=== PATIENT | male | born 1945 | race Caucasian/White ===

== ENCOUNTER 2025-04-19 15:39 | Emergency (ER) | payer MEDICARE, SELFPAY ==
--- NOTE | ~2025-04-19 | XR_ITS ---
XR finger 4th LT min 2V Ordering provider: Inderjit Braswell MD History: . ring finger dislocation vs fracture . Comparison: None. FINDINGS: BONES: No acute fracture. Dislocation is seen in the proximal interphalangeal joint of the left fourt h finger.. SOFT TISSUES: Normal. IMPRESSION: No fractures seen. Dislocation in the proximal interphalangeal joint of the left ring finger. Reviewed, dictated and finalized at location A.
[2025-04-19 15:48] VITALS: BP 148/88; PULSE 71; RESP 16; TEMP 36.6; O2SAT 97
[2025-04-19 20:50] VITALS: BP 142/86; PULSE 68; RESP 18; O2SAT 99
--- NOTE | 2025-04-19 21:02 | ED_ITS ---
HPI - Extremity Injury (Upper) General Chief Complaint: Extremity Injury, Upper Stated Complaint: Inj to left ring finger-fall-+deformity Time Seen by Provider: 04/19/25 20:39 History of Present Illness HPI narrative: 79-year-old male presenting to the emergency department after a mechanical fall while doing yd work he landed onto his left ring finger and feels like his deformed. Denies any pain at this time. No head trauma. No blood thinner use. Was otherwise in his normal state of health. Good range of motion other than the distal part of his left ring finger, no significant swelling. Related Data Home Medications ?Medication ?Instructions ?Recorded ?Confirmed ?Last Taken ?Type alfuzosin 10 mg tablet,extended 10 mg PO DAILY 08/31/23 09/14/23 Unknown History release 24 hr aspirin 81 mg tablet,delayed 81 mg PO 3XW 08/31/23 09/14/23 Unknown History release betamethasone dipropionate 0.05 % 1 applic topical DAILY PRN 08/31/23 09/14/23 Unknown History lotion evolocumab 140 mg/mL subcutaneous 140 mg subcut .2XM 08/31/23 09/14/23 Unknown History pen injector (Leander Patel) famotidine 20 mg tablet 20 mg PO DAILY PRN 08/31/23 09/14/23 Unknown History fluticasone propionate 50 2 spray intranasal DAILY PRN 08/31/23 09/14/23 Unknown History mcg/actuation nasal spray,suspension (Allergy Relief (fluticasone)) irbesartan 150 mg tablet 225 mg PO DAILY 08/31/23 09/14/23 Unknown History ketoconazole 2 % shampoo 1 applic topical 2XW 08/31/23 09/14/23 Unknown History loratadine 10 mg tablet (Claritin) 10 mg PO DAILY PRN 08/31/23 09/14/23 Unknown History zolpidem 5 mg tablet 5 mg PO QHS 08/31/23 09/14/23 Unknown History Allergies Allergy/AdvReac Type Severity Reaction Status Date / Time [id number] Reductase Allergy Intermediate unkown Verified 04/19/25 15:40 Inhibitor Review of Systems Review of Systems: As reviewed above in HPI [facility] Past Medical History Medical History Impacted cerumen of left ear Diverticulosis Hypertension CAD (coronary artery disease) Arthritis Allergies Family History Family History Mother Breast cancer Social History Social History Social History: Caffeine-coffee Smoking status: Never smoker Smoking end date: 11/20/76 Alcohol intake: current Drinks per week: 14 Alcohol use details: wine Substance use: current Substance use type: marijuana Other substance usage details: TCH ointment Lack of Transportation: No Lack of Food: Never True Current Housing: I Have Housing Concerned About Future Housing: No Difficulty Paying Gas/Electric Bills: No Difficulty Paying for Meds: No Currently Unemployed: YES Education: Master's Degree or Higher Difficulty w/ Childcare or Family Care: No Living arrangements: with roommate(s) Gender identity (if verbalized by the patient): Male Agree to blood products: Yes Exam Narrative: GENERAL: [Well-appearing, well-nourished, and in no acute distress.] HEAD: [Normocephalic, atraumatic.] EYES: [PERRLA and EOMI.] CHEST: No respiratory distress HEART: [Regular rate and rhythm]. Good capillary refill ABDOMEN: Nondistended EXTREMITIES: Left ring finger without obvious dislocation/deformity. No significant swelling. No significant pain. Good distal capillary refill. SKIN: Warm, dry, no rash. NEURO: [No focal deficits]. Alert and oriented [x3.] PSYCH: [Normal mood and affect.] Course Vital Signs Vital signs: Vital Signs Temperature 36.6 C 04/19/25 15:48 Pulse Rate 71 04/19/25 15:48 Respiratory Rate 16 04/19/25 15:48 Blood Pressure 148/88 H 04/19/25 15:48 Pulse Oximetry 97 04/19/25 15:48 Temperature 36.6 C 04/19/25 15:48 Pulse Rate 68 04/19/25 20:50 Respiratory Rate 18 04/19/25 20:50 Blood Pressure 142/86 H 04/19/25 20:50 Pulse Oximetry 99 04/19/25 20:50 Procedures Orthopedic Joint Reduction Joint #1: Orthopedic Joint Reduction Date: 04/19/25 Orthopedic Joint Reduction Time: 22:40 Time Out Performed: Yes Side: left Joint Reduction Location: finger Analgesia: none Pre-Procedure Neuro Vascular Exam: normal Local Anesthesia: none Technique used: traction/counter-traction and direct manipulation Post-reduction neuro exam: intact Post-reduction vascular: intact Post Reduction X-Ray Obtained: No Splint Applied: No Patient Tolerated Procedure: well and no complications MDM - Extremity Injury (Upper) MDM Narrative Medical decision making narrative: 79-year-old male presenting for mechanical fall with left index finger dislocation/fracture. He is not any significant pain. No significant swelling. Good distal neuro vasculature. Good radial pulse. No other signs of injury. Normal vital signs in triage. X-rays were obtained that confirmed proximal interphalangeal joint dislocation left ring finger which was reduced at bedside without difficulty. Full range of motion return, no need for postprocedural imaging giving lack of fracture finding and successful reduction without pain. Patient was given ibuprofen for pain and discharged home with ibuprofen and Tylenol. Encouraged to follow-up with regular doctor. Medical Records Attestation: I reviewed the patient's medical records. Imaging Data Attestation: I personally reviewed and interpreted this imaging study as follows: My impression: Impressions Finger X-Ray 04/19/25 16:11 IMPRESSION: No fractures seen. Dislocation in the proximal interphalangeal joint of the left ring finger. Discharge Plan Discharge Clinical Impression: Dislocation of proximal interphalangeal joint of left ring finger Patient Disposition: Home Condition: Stable Instructions: Antibiotic Form, Closed Reduction (ED), Finger Dislocation (ED) Additional Instructions: You had a left ring finger dislocation which was reduced without difficulty. Take Tylenol and ibuprofen for pain and swelling control. Return with any emergencies. Patient Language: Gambian Prescriptions: New acetaminophen [Tylenol Extra Strength] 500 mg tablet 1,000 mg PO TID PRN (Reason: pain) Qty: 30 0RF ibuprofen 800 mg tablet 800 mg PO TID PRN (Reason: pain) Qty: 10 0RF No Action aspirin 81 mg tablet,delayed release (DR/EC) 81 mg PO 3XW Repatha SureClick 140 mg/mL pen injector 140 mg subcut .2XM alfuzosin 10 mg tablet extended release 24 hr 10 mg PO DAILY Rx Instructions: administer after the same meal each day irbesartan 150 mg tablet 225 mg PO DAILY zolpidem 5 mg tablet 5 mg PO QHS loratadine [Claritin] 10 mg tablet 10 mg PO DAILY PRN betamethasone dipropionate 0.05 % lotion 1 applic topical DAILY PRN famotidine 20 mg tablet 20 mg PO DAILY PRN fluticasone propionate [Allergy Relief (fluticasone)] 50 mcg/actuation spray,suspension 2 spray intranasal DAILY PRN Rx Instructions: administer into each nostril ketoconazole 2 % shampoo 1 applic topical 2XW Follow-up/Referrals: Sondra,Carla Yates MD [Non-Staff] - Time of Disposition: 20:43
[2025-04-19] MEDS: IBUPROFEN 400 MG TABLET 800 MG PO (21:05)
== END 2025-04-19 20:50 | disposition home or self-care (01) ==
LOC: ANHED 20:52
PROVIDERS: Emergency Provider Student in an Organized Health Care Education/Training Program
DX: S63.285A Dislocation of proximal interphalangeal joint of left ring finger, initial encounter (principal); W01.0XXA Fall on same level from slipping, tripping and stumbling without subsequent striking against object, initial encounter
CPT/HCPCS: 26725; 73140; 99285; A9270